=== PATIENT | male | born 1985 | race Caucasian/White ===

== ENCOUNTER 2021-01-27 21:48 | Emergency (ER) | payer MEDICAID ==
[~2021-01-27] VITALS: Ht 172.7 cm; Wt 98.0 kg
[2021-01-27 22:01] VITALS: BP 127/82; Ht 172.7 cm; Wt 98.0 kg
[2021-01-27] MEDS ORDERED: MOT800 PO (23:52)
[2021-01-27] MEDS ORDERED: VOLTAREN100 GM TOP (23:52)
== END 2021-01-28 00:14 | disposition home or self-care (01) ==
LOC: ED 21:48
DX: S93.601A Unspecified sprain of right foot, initial encounter (principal); X50.1XXA Overexertion from prolonged static or awkward postures, initial encounter; Y93.89 Activity, other specified; Y92.89 Other specified places as the place of occurrence of the external cause; Y99.8 Other external cause status